=== PATIENT | male | born 1935 | race African-American/Black ===

== ENCOUNTER 2016-12-28 01:43 | Emergency (ER) | payer MEDICARE, OTHER ==
[~2016-12-28] VITALS: Ht 190.5 cm; Wt 82.0 kg
[~2016-12-28 01:43] MED LIST: RANITIDINE; TRAZODONE
[2016-12-28 02:05] VITALS: Ht 190.5 cm; Wt 82.0 kg
[2016-12-28 02:35] LABS: ADD SCAN DIFF NO
[2016-12-28 02:37] LABS: BASOPHILS % 0.8 % (0.0-2.0); EOSINOPHILS # 0.2 10^3/ul (0.0-0.5); HEMATOCRIT 44.9 % (42.0-52.0); HEMOGLOBIN 14.6 g/dl (14.0-18.0); LYMPHOCYTES % 39.6 % (15.0-51.0); MEAN CORPUSCULAR HEMOGLOBIN 28.2 pg (29.0-33.0); MEAN CORPUSCULAR HGB CONC 32.5 g/dl (32.0-37.0); MEAN CORPUSCULAR VOLUME 86.7 fl (82.0-101.0); MEAN PLATELET VOLUME 11.3 fl (7.4-10.4); MONOCYTE # 0.4 10^3/ul (0.3-0.9); MONOCYTES % 7.2 % (0.0-11.0); NEUTROPHIL # 2.4 10^3/ul (1.6-7.5); PLATELET COUNT 156 10^3/UL (140-415); RED BLOOD COUNT 5.18 10^6/ul (4.70-6.10); RED CELL DISTRIBUTION WIDTH 13.2 % (11.5-14.5)
[2016-12-28 02:38] LABS: ADD UMIC NO; URINE BILIRUBIN (Dip) NEGATIVE (NEGATIVE); URINE BLOOD (Dip) NEGATIVE (NEGATIVE); URINE COLOR LT. YELLOW (YELLOW); URINE GLUCOSE (Dip) NEGATIVE (NEGATIVE); URINE KETONES (Dip) NEGATIVE (NEGATIVE); URINE LEUKOCYTE ESTERASE (Dip) NEGATIVE (NEGATIVE); URINE NITRITE (Dip) NEGATIVE (NEGATIVE); URINE TOTAL PROTEIN (Dip) NEGATIVE (NEGATIVE); URINE UROBILINOGEN (Dip) 0.2 E.U./dL (0.1-1.0)
[2016-12-28 02:53] LABS: POTASSIUM 4.3 mmol/L (3.5-5.1)
[2016-12-28 02:56] LABS: CREATININE 1.48 mg/dl (0.61-1.24)
[2016-12-28] MEDS ORDERED: ASPI-664 PO (02:56)
[2016-12-28] MEDS ORDERED: PANT40TA4 PO (02:56)
[2016-12-28] MEDS ORDERED: TAMS0.4C2 PO (02:56)
[2016-12-28] MEDS ORDERED: METR250T19 PO (02:56)
[2016-12-28] MEDS ORDERED: SUCR1TAB56 PO (02:56)
[2016-12-28] MEDS ORDERED: PREG50CA PO (02:56)
[2016-12-28] MEDS ORDERED: HYDR-906 PO (02:56)
[2016-12-28] MEDS ORDERED: FLUT16SP17 NASAL (02:56)
[2016-12-28] MEDS ORDERED: CETI5SOL PO (02:56)
[2016-12-28] MEDS ORDERED: LOSA50TA6 PO (02:56)
[2016-12-28] MEDS ORDERED: CYAN100T PO (02:56)
[2016-12-28 02:57] LABS: CALCIUM 9.7 mg/dl (8.4-10.2)
--- NOTE | 2016-12-28 04:00 | ERD ---
ER Documentation Chief Complaint Date/Time DATE: 12/28/16 TIME: 03:55 Chief Complaint inhalation irritation HPI 81-year-old man presents with insomnia and anxiety this evening because he does not like the boarding care facility he currently resides in, states there is an awful smell. He denies chest pain or shortness of breath, no fevers or chills, no cough, no rash, no vomiting or diarrhea. Patient was transported here by EMS without further complications. ROS All systems reviewed and are negative except as per history of present illness. Medications Home Meds Reported Medications Aspirin* (Aspirin* EC) 81 Mg Tablet.dr, 81 MG PO DAILY, TAB 12/28/16 Metronidazole* (Metronidazole*) 250 Mg Tablet, 250 MG PO Q8, TAB 12/28/16 Pregabalin* (Lyrica*) 50 Mg Capsule, 50 MG PO QHS, CAP 12/28/16 Pantoprazole* (Pantoprazole*) 40 Mg Tablet.dr, 40 MG PO BID, TAB 12/28/16 Losartan Potassium* (Losartan Potassium*) 50 Mg Tablet, 50 MG PO DAILY, TAB 12/28/16 Tamsulosin Hcl* (Tamsulosin Hcl*) 0.4 Mg Cap.er.24h, 0.4 MG PO DAILY, CAP 12/28/16 Cetirizine Hcl* (Cetirizine Hcl*) 5 Mg/5 Ml Solution, 10 MG PO DAILY 12/28/16 Sucralfate* (Carafate*) 1 Gm Tab, 1 GM PO TID, TAB 12/28/16 Hydrocodone/Acetaminophen ([place] 5-325 Tablet) 1 Each Tablet, 1 EACH PO PRN, TAB 12/28/16 Cyanocobalamin* (Vitamin B-12*) 100 Mcg Tablet, 100 MCG PO DAILY, TAB 12/28/16 Fluticasone Propionate* (Fluticasone Propionate* Nasal) 50 Mcg/[place] - 16 Gm [place].susp, 1 SPRAY NASAL DAILY, #1 BOTTLE TO EACH NOSTRIL 12/28/16 Discontinued Reported Medications [Trazadone,Zantac] No Conflict Check 02/01/10 Allergies Allergies: Coded Allergies: Penicillins (Unverified Allergy, Mild, FEVER AND DIZZINESS, 12/28/16) PMhx/Soc Hypertension, chronic pain syndrome, gastritis, mild dementia History of Surgery: Yes (hernia x2) Anesthesia Reaction: No Hx Neurological Disorder: No Hx Cardiac Disorders: Yes (HTN) Hx Miscellaneous Medical Probl: No Hx Alcohol Use: No Hx Substance Use: No Hx Tobacco Use: Yes Smoking Status: Current every day smoker FmHx Family History: No diabetes Physical Exam Vitals Vital Signs Date Time Temp Pulse Resp B/P Pulse Ox O2 Delivery O2 Flow Rate FiO2 12/28/16 02:05 97.5 63 16 174/85 95 Physical Exam GENERAL: Well-developed, well-nourished, well-hydrated, in no apparent distress , looks nontoxic in appearance HEENT: Moist mucous membranes, pink conjunctiva, no cervical spine tenderness or step-off deformities, no goiter, no jaundice or icterus, extraocular movements intact without pain. No submandibular induration, and no pharyngeal erythema NEURO: Alert and oriented 3, cranial nerves II through XII intact bilaterally, pupils equal round reactive to light, no focal deficits or facial asymmetry, sensation intact distally Strength 5/5 in upper and lower extremities bilaterally CARDIAC: Regular rate and rhythm, no murmurs rubs or gallops LUNGS: Clear bilaterally no wheezing crackles or stridor ABDOMEN: Soft nontender, no guarding, no rigidity, no rebound, no psoas sign no obturator sign. Normoactive bowel sounds SKIN: Warm and dry to touch, no abrasions, contusions, or hematomas, no lacerations, no ecchymosis, no target lesions, and without ulcers EXTREMITIES: No clubbing cyanosis or edema, calves are bilaterally symmetrical, no Homans sign, no popliteal cord sign. Distal pulses equal and bilateral PSYCH: Normal affect without agitation or irritability Result Diagram: 12/28/164 12/28/16 0224 Results 24 hrs Laboratory Tests Test 12/28/16 02:00 12/28/16 02:24 Urine Color LT. YELLOW Urine Clarity CLEAR Urine pH 7.0 Urine Specific [place] 1.015 Urine Ketones NEGATIVE Urine Nitrite NEGATIVE Urine Bilirubin NEGATIVE Urine Urobilinogen 0.2 E.U./dL Urine Leukocyte Esterase NEGATIVE Urine Hemoglobin NEGATIVE Urine Glucose NEGATIVE% Urine Total Protein NEGATIVE White Blood Count 5.010^3/ul Red Blood Count 5.1810^6/ul Hemoglobin 14.6g/dl Hematocrit 44.9% Mean Corpuscular Volume 86.7fl Mean Corpuscular Hemoglobin 28.2pg Mean Corpuscular Hemoglobin Concent 32.5g/dl Red Cell Distribution Width 13.2% Platelet Count 92732^3/UL Mean Platelet Volume 11.3fl Neutrophils % 48.0% Lymphocytes % 39.6% Monocytes % 7.2% Eosinophils % 4.0% Basophils % 0.8% Nucleated Red Blood Cells % 0.0/100WBC Neutrophils # 2.410^3/ul Lymphocytes # 2.010^3/ul Monocytes # 0.410^3/ul Eosinophils # 0.210^3/ul Basophils # 0.010^3/ul Nucleated Red Blood Cells # 0.010^3/ul Sodium Level 147mmol/L Potassium Level 4.3mmol/L Chloride Level 108mmol/L Carbon Dioxide Level 28mmol/L Anion Gap 15 Blood Urea Nitrogen 18mg/dl Creatinine 1.48mg/dl Glucose Level 103mg/dl Calcium Level 9.7mg/dl Procedures/MDM CBC and electrolytes are unremarkable, troponin was negative, urine analysis was negative. Patient to have certified social workers in health care consultation in the morning. Patient's blood pressure has improved. Differential diagnoses considered, included but not limited to acute coronary syndrome, pulmonary embolism, aortic dissection, abdominal aortic aneurysm, sepsis, stroke, meningitis, encephalitis, pneumonia, appendicitis, cholecystitis , bowel obstruction, pyelonephritis, nephrolithiasis, cystitis, as well as metabolic, hematologic, and electrolyte abnormalities. As well as abscess, cellulitis, fractures, and dislocations. Patient feels much better at this time, and vital signs are normal, symptoms have improved. I did give strict instructions to return to the ED if symptoms continue or worsen, patient will otherwise follow-up with primary care physician. Patient understood instructions and agreed to plan. Disclaimer: Inadvertent spelling or grammatical errors are likely due to EHR/ dictation software use and do not reflect on the overall quality of patient care. Departure Diagnosis: Primary Impression: Hypertension Hypertension type: essential hypertension Qualified Code: I10 - Essential hypertension Additional Impression: Insomnia Insomnia type: primary Qualified Code: F51.01 - Primary insomnia Condition: Good Patient Instructions: High Blood Pressure (Hypertension) Referrals: SARWAT NICHOLE MD (PCP) ISAIAS GARCIA MD December 28, 2016 04:00
[2016-12-28 09:40] VITALS: BP 136/80; PULSE 76; RESP 18
== END 2016-12-28 10:08 | disposition home or self-care (01) ==
LOC: E/R 01:43
DX: I10 Essential (primary) hypertension (principal); F51.01 Primary insomnia; F17.210 Nicotine dependence, cigarettes, uncomplicated
CPT/HCPCS: 36415; 80048; 81003; 85025; 99284

== ENCOUNTER 2017-01-18 03:37 | Observation (INO) | payer MEDICARE, OTHER ==
[~2017-01-18] VITALS: Ht 188 cm; Wt 81.7 kg
[~2017-01-18 03:37] MED LIST changes: +ASPI-664 PO; +CETI5SOL PO; +CYAN100T PO; +FLUT16SP17 NASAL; +HYDR-906 PO; +LOSA50TA6 PO; +METR250T19 PO; +PANT40TA4 PO; +PREG50CA PO; -RANITIDINE; +SUCR1TAB56 PO; +TAMS0.4C2 PO; -TRAZODONE
[2017-01-18] MEDS ORDERED: ASPIRIN 81 MG TAB PO STA (04:04)
--- NOTE | 2017-01-18 04:19 | RADRPT ---
PROCEDURE: Chest. CLINICAL INDICATION: Chest pain. TECHNIQUE: Single frontal view of the chest was obtained. COMPARISON: 04/20/2009. FINDINGS: The cardiac silhouette is within normal limits. The aortic arch is calcified. There is no focal co nsolidation, vascular congestion or pleural effusion. There is no pneumothorax. IMPRESSION: No evidence for active cardiopulmonary disease. Aortic atherosclerosis. .Aakash Nuñez MD, MD Date Time Electronically viewed and signed by .Aakash Nuñez MD, on 01/18/2017 04:19 .T/
--- NOTE | 2017-01-18 04:44 | ERA ---
ER Documentation Chief Complaint Date/Time DATE: 01/18/17 TIME: 04:40 Chief Complaint Pt reports waking with SOB, dizziness, weakness and CP HPI Patient is a 81-year-old male who presents with sudden onset, constant, moderate , pressure-like substernal chest pain associated with shortness of breath that began approximately 30 minutes prior to ER arrival. The patient states that he has had 3 episodes of similar symptoms in the last 2 weeks and has presented to other hospitals. He is not sure what his diagnosis has been. He states that his pain woke him up from sleep. He states that it felt like an anxiety attack , and he is upset about his living situation, but he does not clearly attribute his symptoms to anxiety. He denies cough, fever, back pain. He reports lightheadedness. He denies nausea, vomiting, diaphoresis. ROS All systems reviewed and are negative except as per history of present illness. Medications Home Meds Reported Medications Aspirin* (Aspirin* EC) 81 Mg Tablet.dr, 81 MG PO DAILY, TAB 12/28/16 Metronidazole* (Metronidazole*) 250 Mg Tablet, 250 MG PO Q8, TAB 12/28/16 Pregabalin* (Lyrica*) 50 Mg Capsule, 50 MG PO QHS, CAP 12/28/16 Pantoprazole* (Pantoprazole*) 40 Mg Tablet.dr, 40 MG PO BID, TAB 12/28/16 Losartan Potassium* (Losartan Potassium*) 50 Mg Tablet, 50 MG PO DAILY, TAB 12/28/16 Tamsulosin Hcl* (Tamsulosin Hcl*) 0.4 Mg Cap.er.24h, 0.4 MG PO DAILY, CAP 12/28/16 Sucralfate* (Carafate*) 1 Gm Tab, 1 GM PO TID, TAB 12/28/16 Hydrocodone/Acetaminophen ([place] 5-325 Tablet) 1 Each Tablet, 1 EACH PO PRN, TAB 12/28/16 Cyanocobalamin* (Vitamin B-12*) 100 Mcg Tablet, 100 MCG PO DAILY, TAB 12/28/16 Fluticasone Propionate* (Fluticasone Propionate* Nasal) 50 Mcg/[place] - 16 Gm [place].susp, 1 SPRAY NASAL DAILY, #1 BOTTLE TO EACH NOSTRIL 12/28/16 Discontinued Reported Medications Cetirizine Hcl* (Cetirizine Hcl*) 5 Mg/5 Ml Solution, 10 MG PO DAILY 12/28/16 Allergies Allergies: Coded Allergies: Penicillins (Unverified Allergy, Mild, FEVER AND DIZZINESS, 01/18/17) PMhx/Soc Past medical history: Hypertension Past surgical history: Denies Social history: Smokes 6 cigarettes per day History of Surgery: Yes (abd hernia x2) Anesthesia Reaction: No Hx Neurological Disorder: No Hx Cardiac Disorders: Yes (HTN) Hx Psychiatric Problems: Yes (SCHIZOPHRENIA) Hx Miscellaneous Medical Probl: Yes (prostate problem) Hx Alcohol Use: No Hx Substance Use: No Hx Tobacco Use: Yes Smoking Status: Current every day smoker FmHx Family History: No coronary disease, No diabetes Physical Exam Vitals Vital Signs Date Time Temp Pulse Resp B/P Pulse Ox O2 Delivery O2 Flow Rate FiO2 01/18/17 04:09 59 19 146/81 97 Room Air 01/18/17 03:43 96.6 62 16 166/98 95 Physical Exam Const: Alert, no acute distress Head: Atraumatic Eyes: Normal Conjunctiva, no pallor, no icterus ENT: Normal External Ears, Nose and Mouth. Moist mucous membranes Neck: Full range of motion. No JVD Resp: Clear to auscultation bilaterally, no wheezes, no rales Cardio: Regular rate and rhythm, no murmurs Abd: Soft, non tender, non distended. Skin: No petechiae or rashes Back: No midline or flank tenderness Ext: No cyanosis, or edema Neur: Awake and alert, cranial nerves II through XII intact bilaterally, strength and sensation full in 4 extremities. Psych: Appears slightly anxious. Result Diagram: 01/18/1742001/18/17 042 Results 24 hrs Laboratory Tests Test 01/18/17 04:21 White Blood Count 4.610^3/ul Red Blood Count 4.9610^6/ul Hemoglobin 13.6g/dl Hematocrit 43.1% Mean Corpuscular Volume 86.9fl Mean Corpuscular Hemoglobin 27.4pg Mean Corpuscular Hemoglobin Concent 31.6g/dl Red Cell Distribution Width 13.2% Platelet Count 29422^3/UL Mean Platelet Volume 11.9fl Neutrophils % 49.1% Lymphocytes % 37.9% Monocytes % 8.8% Eosinophils % 3.4% Basophils % 0.6% Nucleated Red Blood Cells % 0.0/100WBC Neutrophils # 2.310^3/ul Lymphocytes # 1.810^3/ul Monocytes # 0.410^3/ul Eosinophils # 0.210^3/ul Basophils # 0.010^3/ul Nucleated Red Blood Cells # 0.010^3/ul Prothrombin Time 14.5Sec Prothrombin Time Ratio 1.1 INR International Normalized Ratio 1.13 Sodium Level 146mmol/L Potassium Level 3.9mmol/L Chloride Level 110mmol/L Carbon Dioxide Level 25mmol/L Anion Gap 15 Blood Urea Nitrogen 16mg/dl Creatinine 1.45mg/dl Glucose Level 95mg/dl Calcium Level 9.9mg/dl Total Bilirubin 0.2mg/dl Direct Bilirubin 0.00mg/dl Indirect Bilirubin 0.2mg/dl Aspartate Amino Transf (AST/SGOT) 33IU/L Alanine Aminotransferase (ALT/SGPT) 34IU/L Alkaline Phosphatase 66IU/L Troponin I < 0.012ng/ml Total Protein 7.1g/dl Albumin 4.2g/dl Globulin 2.90g/dl Albumin/Globulin Ratio 1.44 Current Medications Medications (Trade) Dose Ordered Sig/Jaimee Route PRN Reason Start Time Stop Time Status Last Admin Dose Admin Aspirin (Aspirin) 162 mg ONCE STAT PO 01/18/17 04:04 01/18/17 04:06 DC 01/18/17 04:19 Procedures/MDM EKG read by me: Time 0350, rate 62 Rhythm: Normal sinus Transfer: Normal Intervals: Normal ST-T waves: T-wave inversion in anterior leads Ectopy: No Q-waves: No Impression: Nonspecific T-wave inversion MDM: Patient is a 81-year-old male who presents with acute chest pain. The pain is associated with shortness of breath, and is pressure-like in quality. The patient does report some anxiety and upset about his housing situation, but is not clear that this is related to his physical symptoms. He states that the pain woke him from sleep. Patient has T-wave inversions on EKG which are nonspecific. He is a smoker. Given his age, I will admit him to observation for further cardiac workup. Aspirin was given in the ER. There are no features of his pain that are suggestive of PE or aortic dissection. The patient does not have significant PE risk factors. Departure Diagnosis: Primary Impression: Chest pain Qualified Code: R07.2 - Precordial pain Condition: Stable THAI AREVALO MD Jan 18, 2017 04:44
[2017-01-18 05:09] LABS: ADD SCAN DIFF NO
[2017-01-18 05:13] LABS: BASOPHILS % 0.6 % (0.0-2.0); EOSINOPHILS # 0.2 10^3/ul (0.0-0.5); EOSINOPHILS % 3.4 % (0.0-7.0); HEMATOCRIT 43.1 % (42.0-52.0); HEMOGLOBIN 13.6 g/dl (14.0-18.0); LYMPHOCYTES # 1.8 10^3/ul (0.8-2.9); LYMPHOCYTES % 37.9 % (15.0-51.0); MEAN CORPUSCULAR HEMOGLOBIN 27.4 pg (29.0-33.0); MEAN CORPUSCULAR HGB CONC 31.6 g/dl (32.0-37.0); MEAN CORPUSCULAR VOLUME 86.9 fl (82.0-101.0); MEAN PLATELET VOLUME 11.9 fl (7.4-10.4); MONOCYTE # 0.4 10^3/ul (0.3-0.9); MONOCYTES % 8.8 % (0.0-11.0); NEUTROPHIL # 2.3 10^3/ul (1.6-7.5); NEUTROPHILS % 49.1 % (39.0-77.0); PLATELET COUNT 140 10^3/UL (140-415); RED BLOOD COUNT 4.96 10^6/ul (4.70-6.10); RED CELL DISTRIBUTION WIDTH 13.2 % (11.5-14.5); WHITE BLOOD COUNT 4.6 10^3/ul (4.8-10.8)
[2017-01-18 05:27] LABS: INR 1.13; PROTIME 14.5 Sec (12.2-14.2); PT RATIO 1.1
[2017-01-18 05:29] LABS: ALANINE AMINOTRANSFERASE 34 IU/L (13-69); ALBUMIN 4.2 g/dl (3.3-4.9); ALBUMIN/GLOBULIN RATIO 1.44; ALKALINE PHOSPHATASE 66 IU/L (42-121); ANION GAP 15 (8-16); ASPARTATE AMINO TRANSFERASE 33 IU/L (15-46); BILIRUBIN,INDIRECT 0.2 mg/dl (0-1.1); BILIRUBIN,TOTAL 0.2 mg/dl (0.2-1.3); BLOOD UREA NITROGEN 16 mg/dl (7-20); CALCIUM 9.9 mg/dl (8.4-10.2); CARBON DIOXIDE 25 mmol/L (21-31); CHLORIDE 110 mmol/L (97-110); CREATININE 1.45 mg/dl (0.61-1.24); GLUCOSE 95 mg/dl (70-220); POTASSIUM 3.9 mmol/L (3.5-5.1); SODIUM 146 mmol/L (135-144); TOTAL PROTEIN 7.1 g/dl (6.1-8.1)
[2017-01-18 05:45] LABS: TROPONIN-I < 0.012 ng/ml (0.00-0.12)
[2017-01-18] MEDS ORDERED: ONDANSETRON 4 MG INJ IV PRN ×2 (07:00→15:30)
[2017-01-18] MEDS ORDERED: ACETAMINOPHEN 325 MG TAB PO PRN ×2 (07:00→15:30)
[2017-01-18] MEDS ORDERED: ASPIRIN 81 MG TAB PO SCH (14:00)
[2017-01-18 14:40] LABS: CHOL/HDL RATIO 3.1 RATIO
[2017-01-18 15:23] VITALS: TEMP 98
[2017-01-18] MEDS ORDERED: BISACODYL (EC) 5 MG TAB PO PRN (15:30)
[2017-01-18] MEDS ORDERED: NACL 0.9% 3 ML SYG IV SCH (15:30)
[2017-01-18] MEDS ORDERED: MAGNESIUM HYDROXIDE 30ML CUP PO PRN (15:30)
[2017-01-18] MEDS ORDERED: DOCUSATE SODIUM 100 MG CAP PO PRN (15:30)
[2017-01-18] MEDS ORDERED: morphine 2 MG INJ IV PRN (15:30)
[2017-01-18 16:29] VITALS: PULSE 53
[2017-01-18 16:35] VITALS: Ht 188 cm; Wt 81.7 kg
[2017-01-18 16:39] VITALS: BP 172/80; PULSE 58; RESP 18
[2017-01-18] MEDS: SOD CHLORIDE 0.9% 1,000 ML IV SCH (17:00)
--- NOTE | 2017-01-18 19:13 | RADRPT ---
Echocardiogram Report Patient Name: ETHAN FRENCH Gender: Male Date: 1935 Study Date: 18-Jan-2017 [employer] College Or University: [employer] [facility] Location: [facility] Ref. Physician: SARWAT NICHOLE Quality: Adequate Procedures: Transthoracic echocardiogram with complete 2D, M-Mode, and doppler examination. Indications: Dizziness. 2D/M Mode Doppler Measurement Value Normal Ranges Measurement Value Normal Ranges LVIDd 2D 4.7 3.5 - 5.6 cm AV Peak Sinan 1.1 m/sec LVIDs 2D 3.3 2.1 - 4.1 cm AV Peak PG 4.5 mmHg LVPWd 2D 1.3 0.6 - 1.1 cm AI Peak PG 36.5 mmHg IVSd 2D 1.3 0.6 - 1.1 cm AI Peak Sinan 3.0 m/sec AoR Diam 2D 3.6 2.0 - 3.7 cm AI PHT 770.7 msec EDV 2D 103.1 cm3 LVOT Peak Sinan 0.7 m/sec ESV 2D 37.6 cm3 LVOT Peak PG 2.0 mmHg LA Dimen 2D 4.1 2.3 - 4.0 cm Findings Left Ventricle: Lower limits of normal systolic function. Normal left ventricular cavity size. Mild concentric left ventricular hypertrophy. Ejection fraction is visually estimated at 50 %. Tissue Doppler/Mitral Doppler indices are consistent with impaired relaxation (Stage I diastolic dysfunction). Right Ventricle: Normal right ventricular size. Normal right ventricular systolic function. Left Atrium: There is mild enlargement of left atrium. Right Atrium: The right atrium is normal in size. Mitral Valve: Normal appearance and function of the mitral valve with trace physiologic regurgitation. Aortic Valve: Normal appearance of the aortic valve. Mild to moderate aortic valve regurgitation. Tricuspid Valve: Normal appearance and function of the tricuspid valve with trace physiologic regurgitation. Unable to obtain RVSP due to minimal presence of tricuspid regurgitation. Pulmonic Valve: Pulmonic valve not well visualized. There is trace pulmonic regurgitation. Pericardium: Normal pericardium with no significant pericardial effusion. Aorta: Normal aortic root. IVC: Normal size and normal respiratory collapse consistent with normal right atrial pressure. Conclusions 1.Lower limits of normal systolic function. Normal left ventricular cavity size. Mild concentric left ventricular hypertrophy. Ejection fraction is visually estimated at 50 %. Tissue Doppler/Mitral Doppler indices are consistent with impaired relaxation (Stage I diastolic dysfunction). 2.Normal right ventricular size. Normal right ventricular systolic function. 3.Normal appearance and function of the mitral valve with trace physiologic regurgitation. 4.Normal appearance of the aortic valve. Mild to moderate aortic valve regurgitation. 5.Normal appearance and function of the tricuspid valve with trace physiologic regurgitation. Unable to obtain RVSP due to minimal presence of tricuspid regurgitation. 6.Normal pericardium with no significant pericardial effusion. Electronically Signed By: Alexis Griffin 18-Jan-2017 15:51:46 -0700 Patient Name: ETHAN FRENCH Study Date: 18-Jan-2017 [id number]
--- NOTE | 2017-01-18 19:13 | HP ---
DATE OF ADMISSION: 01/18/2017 HISTORY OF PRESENT ILLNESS: A 81-year-old male with history of hypertension, dyslipidemia, and dyspepsia, BPH symptoms, presented with complaining of short of breath, weakness and body ache, chest pain while sleeping in the _ and he thinks it was too hot and he thought someone was strangling him. EKG shows sinus rhythm with nonspecific ST-T changes. PAST MEDICAL HISTORY: BPH, hypertension, dyspepsia, gastritis. The patient has dyslipidemia history. ALLERGY HISTORY: REPORTED NEGATIVE. FAMILY HISTORY: Noncontributory. SOCIAL HISTORY: Negative. MEDICATION HISTORY: Patient is on BP medication. The patient is on Flomax. The patient is on Protonix. The patient is on pain medicine. REVIEW OF SYSTEMS: HEENT: Unremarkable. RESPIRATORY: Unremarkable except as mentioned. ABDOMEN: Unremarkable except as mentioned. History of dysphagia, dyspepsia. EXTREMITIES: Unremarkable. CENTRAL NERVOUS SYSTEM: Unremarkable. PHYSICAL EXAMINATION: GENERAL: The patient is awake, alert. VITAL SIGNS: Pulse 62, blood pressure of HEAD: Atraumatic, normocephalic. Pupils equal, reactive to light. NECK: Supple. No JVD. LUNGS: Clear. CARDIOVASCULAR: S1, S2 are normal. ABDOMEN: Soft, nontender. Bowel sounds positive. No palpable mass or hepatosplenomegaly. No guarding, rebound tenderness. EXTREMITIES: There is no cyanosis, clubbing, or edema. CENTRAL NERVOUS SYSTEM: The patient is awake, alert with no focal deficit. LABORATORY DATA: Will be reviewed. EKG: Shows sinus rhythm, nonspecific ST-T changes. IMPRESSION: 1. Incomplete database. 2. Rule out ischemic heart disease. 3. Rule out myocardial infarction. 4. Hypertension. 5. Dyspepsia. 5. History of benign prostatic hypertrophy. PLAN: To continue home medication. Troponin will be sent, 2D echo, cardiology consultation. Continue home medication, PPI. Orders were done. DVT prophylaxis. Dictated By: SARWAT NAVAS/SERGEI Conf#: [id number] DID#: [id number] MTDD
--- NOTE | 2017-01-18 19:14 | CONS ---
DATE OF ADMISSION: 01/18/2017 DATE OF CONSULTATION: 01/18/2017 TYPE OF CONSULTATION: Cardiology Thank you, Dr. Gonzalo Nuno, for cardiology consultation. REASON FOR CONSULTATION: Evaluation for chest pain. HISTORY OF PRESENT ILLNESS: The patient is a 81-year-old gentleman who comes in with history of m[address] [facility] pain, chest pressure associated with numbness of the left upper extremity and near syncope. He d oes complain of exposure to chemicals and possible inhalation with symptoms of scratchy throat and e ye and nose irritation. He also complains of shortness of breath, but no syncope, no palpitation. He does complain of nausea, no vomiting. Denies fever, chills, or rigors. PAST MEDICAL HISTORY: Significant for: 1. Hypertension. 2. BPH. SOCIAL HISTORY: No smoking, alcohol or recreational drugs. ALLERGIES: PENICILLIN. MEDICATIONS: 1. Aspirin. 2. Losartan. 3. Protonix. 4. Lyrica. 5. Tamsulosin. PHYSICAL EXAMINATION: VITAL SIGNS: Temperature 97.2, heart rate of 68, blood pressure 134/85 mmHg, breathing at 16 and sa turating 95% on room air. GENERAL: The patient awake, alert, oriented, in no apparent distress. NECK: No JVD or carotid bruit. CARDIOVASCULAR: Regular rate and rhythm. No murmur, rub or gallop. CHEST: Clear to auscultation. ABDOMEN: Soft. Bowel sounds are present. There is no organomegaly. EXTREMITIES: No pedal edema. Pedal pulses are felt bilaterally. DIAGNOSTIC DATA: EKG shows normal sinus rhythm with a ventricular rate of 62 beats per minute with normal OK, QRS and normal QT intervals, with nonspecific ST-T wave changes. Chest x-ray shows no congestion or infiltrate. LABORATORY DATA: WBC 5, hemoglobin 14.6, hematocrit 44.9 with platelets of 156. Sodium 147, potass ium 4.3, chloride 108, CO2 of 28, BUN 18, creatinine 1.48. ASSESSMENT AND PLAN: 1. A 81-year-old gentleman with atypical chest pain. 2. Possible exposure to chemicals. 3. Hypertension. 4. Benign prostatic hypertrophy. Review of 12-lead EKG shows normal sinus rhythm with nonspecific ST-T wave changes, hemodynamically stable. RECOMMENDATIONS: 1. Trend troponin, BNP, TSH. 2. Echocardiogram to assess for systolic function. 3. Continue losartan. 4. Added metoprolol 50 mg b.i.d. 5. Continue GI and DVT prophylaxis. Dictated By: GORGE ARRIAZA MD, SR/SERGEI Conf#: [id number] DID#: [id number]
[2017-01-18 19:54] VITALS: BP 157/78; RESP 18
[2017-01-18 20:57] VITALS: PULSE 54
[2017-01-18] MEDS: PREGABALIN 50 MG CAP PO SCH (21:00)
[2017-01-18] MEDS: SUCRALFATE 1 GM TAB PO SCH (21:00)
[2017-01-18] MEDS ORDERED: PANTOPRAZOLE (EC) 40 MG TAB PO SCH (21:00)
[2017-01-18] MEDS ORDERED: PANTOPRAZOLE (EC) 40 MG TAB PO ONE (23:38)
[2017-01-18 23:56] VITALS: BP 132/64; RESP 18
[2017-01-19] VITALS (12 sets, daily range): BP systolic 136–166; BP diastolic 75–84; PULSE 48–54; RESP 12–19
[2017-01-19] MEDS ORDERED: ENOXAPARIN 40 MG/0.4 ML SYG SC SCH (09:00)
[2017-01-19] MEDS ORDERED: TAMSULOSIN (SR) 0.4 MG CAP PO SCH ×2 (09:00→10:20)
[2017-01-19] MEDS ORDERED: LOSARTAN 50 MG TAB PO SCH ×2 (09:00→10:19)
[2017-01-19] MEDS ORDERED: CYANOCOBALAMIN 100 MCG TAB PO SCH ×2 (09:00→10:18)
[2017-01-19] MEDS ORDERED: FLUTICASONE 0.05% 16 GM NAS SPRAY NASAL SCH ×2 (09:00→10:18)
[2017-01-19] MEDS ORDERED: ASPIRIN (EC) 81 MG TAB PO SCH (09:00)
[2017-01-19] MEDS: SUCRALFATE 1 GM TAB PO SCH ×3 (09:15→21:12)
--- NOTE | 2017-01-19 10:01 | PN ---
Date/Time of Note Date/Time of Note DATE: 01/19/17 TIME: 10:00 Assessment/Plan VTE Prophylaxis VTE Prophylaxis Intervention: LMWH Lines/Catheters IV Catheter Type (from Nrs): Peripheral IV Assessment/Plan Chief Complaint/Hosp Course 1. Chest pain 2. Rule out ischemic heart disease. 3. Rule out myocardial infarction. 4. Hypertension, uncontrolled. 5. Dyspepsia. 5. History of benign prostatic hypertrophy. Problems: Subjective 24 Hr Interval Summary Constitutional: no complaints Eyes: no complaints Neurologic: no complaints Exam/Review of Systems Vital Signs Vitals Vital Signs Date Time Temp Pulse Resp B/P Pulse Ox O2 Delivery O2 Flow Rate FiO2 01/19/17 08:31 98.0 53 18 166/80 98 01/18/17 16:39 Nasal Cannula 2.0 Intake and Output 01/18/17 01/18/17 01/19/17 15:00 23:00 07:00 Intake Total 500 ml 600 ml Output Total 1000 ml 500 ml Balance -500 ml 100 ml Exam Constitutional: alert, oriented Neck: supple Respiratory: clear to auscultation Cardiovascular: regular rate and rhythm Gastrointestinal: soft Results Result Diagram: 01/18/17 0421 01/18/17 042 Medications Medications Current Medications Aspirin (Halfprin) 81 mg DAILY PO ; Start 01/19/17 at 09:00 Cyanocobalamin (Vitamin B12) 100 mcg DAILY PO ; Start 01/19/17 at 09:00 Fluticasone Propionate (Flonase 0.05% Nasal) 1 spray DAILY NASAL ; Start at 09:00 Losartan Potassium (Cozaar) 50 mg DAILY PO ; Start 01/19/17 at 09:00 Pantoprazole (Protonix Tab) 40 mg BID PO Last administered on 01/18/17 23:42; Admin Dose 40 MG; Start 01/18/17 at 21:00 Pregabalin (Lyrica) 50 mg QHS PO Last administered on 01/18/17 21:00; Admin Dose 50 MG; Start 01/18/17 at 21:00 Sucralfate (Carafate) 1 gm TID PO Last administered on 01/19/17 09:15; Admin Dose 1 GM; Start 01/18/17 at 21:00 Tamsulosin HCl 0.4 mg 0.4 mg DAILY PO ; Start 01/19/17 at 09:00 Sodium Chloride (NS) 1,000 ml @ 25 mls/hr Q24H IV Last administered on 17:00; Admin Dose 25 MLS/HR; Start 01/18/17 at 15:27 Ondansetron HCl (Zofran Inj) 4 mg Q6H PRN IV NAUSEA AND/OR VOMITING; Start at 15:30 Acetaminophen (Tylenol Tab) 650 mg Q6H PRN PO PAIN LEVEL 1-3 OR FEVER; Start at 15:30 Morphine Sulfate (morphine) 2 mg Q4H PRN IV SEVERE PAIN LEVEL 7-10 Last administered on 01/19/17 09:15; Admin Dose 2 MG; Start 01/18/17 at 15:30 Docusate Sodium (Colace) 100 mg Q12H PRN PO CONSTIPATION; Start 01/18/17 at 15: 30 Magnesium Hydroxide (Milk Of Mag) 30 ml DAILY PRN PO CONSTIPATION; Start at 15:30 Bisacodyl (Dulcolax) 5 mg DAILY PRN PO CONSTIPATION; Start 01/18/17 at 15:30 Enoxaparin Sodium (Lovenox) 40 mg DAILY SC ; Start 01/19/17 at 09:00 MAURI SHARP Jan 19, 2017 10:01
[2017-01-19] MEDS: PANTOPRAZOLE (EC) 40 MG TAB PO SCH ×2 (10:44→21:12)
--- NOTE | 2017-01-19 13:10 | CONS ---
Date/Time of Note Date/Time of Note DATE: 01/19/17 TIME: 13:04 Assessment/Plan Assessment/Plan Additional Assessment/Plan Atypical chest pain Hypertension BPH He has been ruled out for ACS with serial negative troponin's and clinically not in heart failure Echo is pending Hypertensive Started on Norvasc Increased Losartan Echo pending Consultation Date/Type/Reason Admit Date/Time Jan 18, 2017 at 06:50 Initial Consult Date Exam/Review of Systems Vital Signs Vitals Vital Signs Date Time Temp Pulse Resp B/P Pulse Ox O2 Delivery O2 Flow Rate FiO2 01/19/17 12:34 98.0 53 18 136/75 98 01/18/17 16:39 Nasal Cannula 2.0 Intake and Output 01/18/17 01/18/17 01/19/17 15:00 23:00 07:00 Intake Total 500 ml 600 ml Output Total 1000 ml 500 ml Balance -500 ml 100 ml Exam Constitutional: alert, oriented Head: atraumatic, normocephalic Neck: non-tender, supple Respiratory: clear to auscultation Cardiovascular: regular rate and rhythm Gastrointestinal: nl liver, spleen, non-tender, soft Extremities: normal pulses Results Result Diagram: 01/18/17 0421 01/18/17 0421 Results 24 hrs Laboratory Tests Test 01/19/17 11:00 Troponin I < 0.012 Medications Medications Current Medications Aspirin (Halfprin) 81 mg DAILY PO ; Start 01/19/17 at 09:00 Pregabalin (Lyrica) 50 mg QHS PO Last administered on 01/18/17 21:00; Admin Dose 50 MG; Start 01/18/17 at 21:00 Sucralfate 1 gm 1 gm TID PO Last administered on 01/19/17 12:34; Admin Dose 1 GM; Start 01/18/17 at 21:00 Sodium Chloride (NS) 1,000 ml @ 25 mls/hr Q24H IV Last administered on 17:00; Admin Dose 25 MLS/HR; Start 01/18/17 at 15:27 Ondansetron HCl (Zofran Inj) 4 mg Q6H PRN IV NAUSEA AND/OR VOMITING; Start at 15:30 Acetaminophen (Tylenol Tab) 650 mg Q6H PRN PO PAIN LEVEL 1-3 OR FEVER; Start at 15:30 Morphine Sulfate (morphine) 2 mg Q4H PRN IV SEVERE PAIN LEVEL 7-10 Last administered on 01/19/17 09:15; Admin Dose 2 MG; Start 01/18/17 at 15:30 Docusate Sodium (Colace) 100 mg Q12H PRN PO CONSTIPATION; Start 01/18/17 at 15: 30 Magnesium Hydroxide (Milk Of Mag) 30 ml DAILY PRN PO CONSTIPATION; Start at 15:30 Bisacodyl (Dulcolax) 5 mg DAILY PRN PO CONSTIPATION; Start 01/18/17 at 15:30 Enoxaparin Sodium (Lovenox) 40 mg DAILY SC ; Start 01/19/17 at 09:00 Cyanocobalamin (Vitamin B12) 100 mcg DAILY PO Last administered on 01/19/17 10 :44; Admin Dose 100 MCG; Start 01/19/17 at 10:18 Fluticasone Propionate (Flonase 0.05% Nasal) 1 spray DAILY NASAL Last administered on 01/19/17 10:43; Admin Dose 1 SPRAY; Start 01/19/17 at 10:18 Losartan Potassium (Cozaar) 50 mg DAILY PO Last administered on 01/19/17 10:43 ; Admin Dose 50 MG; Start 01/19/17 at 10:19 Pantoprazole (Protonix Tab) 40 mg BID PO Last administered on 01/19/17 10:44; Admin Dose 40 MG; Start 01/19/17 at 10:19 Tamsulosin HCl (Flomax) 0.4 mg DAILY PO Last administered on 01/19/17 10:43; Admin Dose 0.4 MG; Start 01/19/17 at 10:20 GORGE ARRIAZA M.D. Jan 19, 2017 13:10
[2017-01-19] MEDS ORDERED: METOPROLOL 50 MG TAB PO SCH (13:30)
[2017-01-19] MEDS ORDERED: AMLODIPINE 10 MG TAB PO SCH (14:00)
[2017-01-19] MEDS ORDERED: LOSARTAN 50 MG TAB PO ONE (14:00)
[2017-01-19] MEDS: SOD CHLORIDE 0.9% 1,000 ML IV SCH (15:27)
[2017-01-19] MEDS ORDERED: NICOTINE (14 MG/24 HR) PATCH TRANSDERM SCH (16:00)
[2017-01-19] MEDS: PREGABALIN 50 MG CAP PO SCH (21:12)
[2017-01-20 00:22] VITALS: PULSE 48
[2017-01-20] MEDS ORDERED: LOSARTAN 50 MG TAB PO SCH (09:00)
== END 2017-01-20 04:25 | disposition left against medical advice (07) ==
LOC: E/R 03:37 → MS4 06:50
PROVIDERS: ADMIT Internal Medicine Nephrology; ATTEND Internal Medicine Nephrology
DX: R07.89 Other chest pain (principal); I10 Essential (primary) hypertension; F17.210 Nicotine dependence, cigarettes, uncomplicated; F20.9 Schizophrenia, unspecified; E78.5 Hyperlipidemia, unspecified; N40.0 Benign prostatic hyperplasia without lower urinary tract symptoms; R10.13 Epigastric pain; Z79.82 Long term (current) use of aspirin; Z88.0 Allergy status to penicillin
CPT/HCPCS: 36415; 71010; 80053; 80061; 83880; 84484; 85025; 85610; 93005; 93306; 96374; 99285; G0378; J2270; J3420; J7030; J1650

== ENCOUNTER 2017-08-02 22:45 | Emergency (ER) | END 2017-08-03 04:29 | disposition home or self-care (01) ==

== ENCOUNTER 2017-08-25 01:28 | Observation (INO) | END 2017-08-27 13:30 | disposition home or self-care (01) ==

== ENCOUNTER 2017-11-01 22:47 | Emergency (ER) | END 2017-11-02 03:51 | disposition home or self-care (01) ==